=== PATIENT | female | born 1990 | race Caucasian/White ===

== ENCOUNTER 2018-08-22 18:22 | Emergency (ER) | payer OTHER ==
--- NOTE | 2018-08-22 19:19 | EDPHY ---
H & P Time Seen by Provider: 08/22/18 18:58 HPI/ROS: HPI Anxiety, tingling in hands and face. 28-year-old female by private vehicle with her boyfriend. This patient reports that over the last 2-3 days she has had a sensation of pins and needles and tingling in her right hand, right arm, right foot and both cheeks. She also describes having associated chest tightness. No shortness of breath. She denies cough. She has not had a fever. She denies loss of sensation or weakness in her extremities. No other complaints. She has not been out in the [facility]. No travel to the [facility]. No history of a tick bite. ROS: Constitutional: No fever, no chills. As above. Eyes: No discharge. No changes in vision. ENT: No sore throat. No nasal congestion or rhinorrhea. Respiratory: No cough. No shortness of breath. Cardiac: No chest pain, no palpitations. Gastrointestinal: No abdominal pain, no vomiting, no diarrhea. Genitourinary: No hematuria. No dysuria or increased frequency with urination. Musculoskeletal: No back pain. No neck pain. No myalgias or arthralgias. Skin: No rashes. Neurological: No headache. No focal weakness. As above. Past medical history: No significant past medical history. She is not on any prescription medications. Social history: She does not smoke. No alcohol. Currently with her boyfriend. Physical Exam: General Appearance: Alert, no distress. This patient is responding to questions appropriately and in full sentences. This patient appears well- hydrated and well-nourished. Eyes: Pupils equal and round and reactive to light at 3-2 mm bilaterally. no pallor or injection. No lid edema, erythema or injection. No nystagmus. Respiratory: There are no retractions, lungs are clear to auscultation with good air movement bilaterally. Cardiovascular: Regular rate and rhythm. No murmur. Gastrointestinal: Abdomen is soft and nontender, no masses, bowel sounds normal. No focal tenderness at McBurney's point. No Payne sign. Neurological: Motor sensory function intact in all myotomes in dermatomes of the bilateral upper and bilateral lower extremities. Cranial nerves are normal. Gait is normal. Cerebellar function is normal. Skin: Warm and dry, no rashes. Musculoskeletal: Neck is supple and nontender. Extremities are symmetrical. All joints range without pain or impingement. Psychiatric: No agitation. No depression. Database: EKG: EKG time is 6:43 p.m.; EKG shows a narrow complex normal sinus rhythm with a ventricular rate of 87. The ID, QRS, QT intervals are within normal limits. There are no ST-T wave changes indicative of ischemic or injury pattern. No evidence of right heart strain. Interpreted by me. Imaging: Procedures: Emergency department course: Triage vital signs reviewed. She is mildly hypertensive. Triage vital signs otherwise normal. She is afebrile. No significant findings on her neurologic exam. I discussed results of her EKG. She does feel comfortable going home and I feel she is safe for discharge. I will refer her to Neurology for follow- up next week. Return to emergency department precautions reviewed with her. All of her questions were answered. She was discharged from the emergency department in good condition. Differential Diagnosis: The differential diagnosis on this patient includes but is not limited to anxiety reaction. CVA, MS, tick borne illness unlikely. This represents a partial list of diagnoses considered. These considerations are based on history , physical exam, past history, reassessment and diagnostic testing. Smoking Status: Never smoked Constitutional: Initial Vital Signs Temperature (C) 36.6 C 08/22/18 18:27 Heart Rate 85 08/22/18 18:27 Respiratory Rate 18 08/22/18 18:27 Blood Pressure 148/100 H 08/22/18 18:27 O2 Sat (%) 99 08/22/18 18:27 O2 Delivery Mode Room Air Allergies/Adverse Reactions: No Known Allergies Allergy (Unverified 08/22/18 18:26) Home Medications: Medication Instructions Recorded Albuterol 08/22/18 Departure - Departure Disposition: Home, Routine, Self-Care Clinical Impression: Paresthesia, Anxiety reaction Condition: Good Instructions: Anxiety (ED), Paresthesia (ED) Additional Instructions: Read and follow provided instructions. Follow-up with Neurology as discussed next week for re-evaluation. He will have to call their office on Friday morning to schedule an appointment. Return to the emergency department for worsening symptoms, loss of sensation or weakness in your extremities or other serious concerns. Referrals: Jovanni Durand MD [Medical Doctor] - As per Instructions
[2018-08-22 19:26] VITALS: BP 127/88
== END 2018-08-22 19:26 | disposition home or self-care (01) ==
DX: F41.9 Anxiety disorder, unspecified (principal); R20.2 Paresthesia of skin

== ENCOUNTER → 2018-09-08 | Outpatient (CLI) | payer OTHER ==
[~2018-09-08] MED LIST: GADOBUTROL 10 ML VIAL IVP ONE
== END ==
LOC: FIMAGING 06:48
PROVIDERS: ATTEND Psychiatry & Neurology Neurology
DX: R20.2 Paresthesia of skin (principal)
CPT/HCPCS: A9585